=== PATIENT | male | born 1980 | race Caucasian/White ===

== ENCOUNTER 2021-11-22 13:42 | Day surgery (SDC) | payer OTHER, SELFPAY ==
[~2021-11-22] VITALS: Ht 177.8 cm; Wt 89.2 kg
[2021-11-22] VITALS (10 sets, daily range): BP systolic 81–121; BP diastolic 40–88
[2021-11-22] MEDS ORDERED: diphenhydrAMINE 25mg capsule PO PRN (14:00)
[2021-11-22] MEDS ORDERED: LORazepam 0.5 MG tablet PO PRN (14:00)
[2021-11-22] MEDS ORDERED: OMEP40CA21 PO (14:34)
[2021-11-22] MEDS ORDERED: VALA100031 PO (14:34)
[2021-11-22] MEDS ORDERED: NAPR-56 PO (14:38)
[2021-11-22] MEDS ORDERED: verapamil 2.5 mg/ml inj IV ONE (16:44)
[2021-11-22] MEDS ORDERED: nitroGLYCERIN-Tridil 50MG/D5W 250 ML IV ONE (16:45)
[2021-11-22] MEDS ORDERED: iohexol 350MG/ML 100ml bottle IV ONE (16:46)
[2021-11-22] MEDS ORDERED: midazolam 1 mg/ML 2ml injection ONE (16:46)
[2021-11-22] MEDS ORDERED: heparin 1,000unit/ml 10ml vial 10 ML ONE (16:46)
[2021-11-22] MEDS ORDERED: LIDOcaine 1% (10mg/ml)w/preservative inj. 20ml MDV ONE (16:49)
[2021-11-22] MEDS ORDERED: GLUC15006 PO (16:56)
[2021-11-22] MEDS ORDERED: MULT-1249 PO (16:56)
[2021-11-22] MEDS ORDERED: CALC-1215 PO (16:56)
[2021-11-22] MEDS ORDERED: CHOL-4 PO (16:56)
--- NOTE | 2021-11-22 17:05 | NUR ---
Angio transferred patient to molder labels at this time, transferred care of patient to Kymberly CAMPBELL. Gave report to Kymberly.
[2021-11-22] MEDS ORDERED: HYDROcodone/acetaminophen 5mg/325mg tablet PO PRN (18:20)
[2021-11-22] MEDS ORDERED: HYDROcodone/acetaminophen 10/325mg tab PO PRN (18:20)
--- NOTE | 2021-11-22 20:45 | NUR ---
Patient c/o of nausea and is diaphoretic. Blood glucose 99. Patient BP decreased and HR in 40's. NS fluid bolus given and BP in 90's. Arterial puncture sites to right radial and right femoral stable with no bleeding noted. Vascband in place to right radial artery. Will continue to monitor.
--- NOTE | 2021-11-22 21:20 | NUR ---
Contacted Dr. Anisha Lomas to notify of patient belen HR and decreased BP. Per MD, continue to monitor for 1 hour and if patient is asymptomatic and stable vital signs, OK to discharge. D/C new order for metoprolol XL 25 mg PO daily.
[2021-12-06] MEDS ORDERED: ASPI81TA52 PO (13:40)
[2021-12-06] MEDS ORDERED: ATOR40TA71 PO (13:40)
[2021-12-06] MEDS ORDERED: CHLO25TA10 PO (13:40)
[2021-12-06] MEDS ORDERED: [UNRECOGNIZED DRUG - OTHER] PO (13:40)
[2021-12-06] MEDS ORDERED: OMEP1CAP32 PO (13:55)
== END 2021-11-22 22:30 | disposition home or self-care (01) ==
LOC: SSTAY O 13:42
PROVIDERS: ATTEND Internal Medicine Interventional Cardiology
DX: R94.39 Abnormal result of other cardiovascular function study (principal); R07.89 Other chest pain; I25.10 Atherosclerotic heart disease of native coronary artery without angina pectoris; I10 Essential (primary) hypertension; Z79.899 Other long term (current) drug therapy
CPT/HCPCS: 82948; 93005; 93459; 99152; 99153; C1760; C1769; C1894; J1644; J2250; J3490; Q0163; Q9967; 93458; A4620; A6258

== ENCOUNTER 2021-12-24 10:33 | Outpatient (CLI) | payer OTHER, SELFPAY ==
[~2021-12-24 10:33] MED LIST: ASPI81TA52 PO; ATOR40TA71 PO; CALC-1215 PO; CHLO25TA10 PO; CHOL-4 PO; GLUC15006 PO; HYDR-3972 PO; LOP25T PO; MULT-1249 PO; NAPR-56 PO; OMEP40CA21 PO; VALA100031 PO; [UNRECOGNIZED DRUG - OTHER] PO
[2021-12-24 11:20] LABS: BASOPHILS # (AUTO) 0.1 X10'3 (0-0.2); BASOPHILS % (AUTO) 0.7 % (0-1); EOSINOPHILS # (AUTO) 0.1 X10'3 (0-0.9); EOSINOPHILS % (AUTO) 1.5 % (0-6); HEMATOCRIT 40.4 % (42.0-52.0); HEMOGLOBIN 14.2 g/dl (14.0-17.9); LYMPHOCYTES # (AUTO) 1.6 X10'3 (1.1-4.8); MEAN CORPUSCULAR HGB CONC 35.1 g/dL (33.0-36.5); MEAN CORPUSCULAR VOLUME 91.2 FL (78-98); MEAN PLATELET VOLUME 6.7 FL (7.4-10.4); MONOCYTES # (AUTO) 0.9 X10'3 (0-0.9); MONOCYTES % (AUTO) 11.6 % (2-12); NEUTROPHILS # (AUTO) 5.1 X10'3 (1.8-7.7); NEUTROPHILS % (AUTO) 65.2 % (42-75); PLATELET COUNT 390 X10'3 (140-440); RED BLOOD COUNT 4.43 X10'6 (4.70-6.10); RED CELL DISTRIBUTION WIDTH 13.9 % (11.5-14.5); WHITE BLOOD COUNT 7.8 X10'3 (4.5-11.0)
== END 2021-12-24 23:59 | disposition home or self-care (01) ==
LOC: LAB 10:33
PROVIDERS: ATTEND Thoracic Surgery (Cardiothoracic Vascular Surgery)
DX: I25.810 Atherosclerosis of coronary artery bypass graft(s) without angina pectoris (principal); M47.814 Spondylosis without myelopathy or radiculopathy, thoracic region
CPT/HCPCS: 36415; 71046; 85025